=== PATIENT | female | born 2000 | race Caucasian/White ===

== ENCOUNTER 2018-01-02 11:31 | Emergency (ER) | payer SELFPAY ==
[~2018-01-02] VITALS: Ht 162.6 cm; Wt 59.9 kg
[2018-01-02 11:45] VITALS: BP 131/66
--- NOTE | 2018-01-02 11:45 | NUR ---
PT AMBULATES TO BED 5
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
--- NOTE | 2018-01-02 12:11 | NUR ---
DR. OWENS MADE AWARE OF PATIENTS STATUS/REASON FOR ER VISIT.
--- NOTE | 2018-01-02 12:34 | NUR ---
FATHER AT BEDSIDE AT THIS TIME.
--- NOTE | 2018-01-02 13:10 | NUR ---
ER MD EVALUATING PT AT THE BEDSIDE AT THIS TIME.
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
--- NOTE | 2018-01-02 13:16 | NUR ---
[facility] CALLED AT THIS TIME
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
--- NOTE | 2018-01-02 14:26 | NUR ---
PT RESTING COMFORTABLY IN [facility] AT THIS TIME W/ VSS, RR EVEN AND UNLABORED. SAFETY PRECAUTIONS IN PLACE. WILL CONTINUE TO MONITOR.
[2018-01-02 14:49] VITALS: BP 126/59
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
== END 2018-01-02 14:50 | disposition home or self-care (01) ==
LOC: MED 11:31
DX: Z04.71 Encounter for examination and observation following alleged adult physical abuse (principal); F17.210 Nicotine dependence, cigarettes, uncomplicated
CPT/HCPCS: 99283